=== PATIENT | female | born 1995 | race Caucasian/White ===

== ENCOUNTER 2016-12-27 11:41 | Emergency (ER) | payer OTHER ==
--- NOTE | 2016-12-27 12:24 | ER Document Report ---
ED Medical Screen (RME) - General Stated Complaint: CHEST PAIN Notes: monday-pelvic pain monday-nausea and pelvic pain monday- pelvic pain, nausea and diarrhea today- all above with chest pain chest pain is along the pectoralis muscle of the left chest that hurts with movement and is reproducible to palpation. no friction rub, breath sound are equal bilaterally. LMP: 12/09/2015 s/a with one partner with occasional condom use, denies any abnormal d/c, vaginal bleeding Denies PO BC, tobacco use, recent travel or recent sugery Patient has been evaluated and I have completed a rapid medical examination. A complete history and physical examination along with evaluation of workup will be completed by the provider once a bed is assigned - Related Data Allergies/Adverse Reactions: No Known Allergies Allergy (Unverified 12/27/16 12:19) Physical Exam - Vital signs Vitals: Temp Pulse Resp BP Pulse Ox 98.2 F 86 16 119/67 97 12/27/16 12:12 12/27/16 12:12 12/27/16 12:12 12/27/16 12:12 12/27/16 12:12 Course - Vital Signs Vital signs: Temp Pulse Resp BP Pulse Ox 98.2 F 86 16 119/67 97 12/27/16 12:12 12/27/16 12:12 12/27/16 12:12 12/27/16 12:12 12/27/16 12:12
--- NOTE | 2016-12-27 13:29 | EKG REPORT ---
SEVERITY:- NORMAL ECG - SINUS RHYTHM : Confirmed by: Ayan Scruggs MD 27-Dec-2016 13:27:20
[2016-12-27 14:17] LABS: APPEARANCE,URINE SLIGHTLY-CLOUDY; BILIRUBIN,URINE NEGATIVE (NEGATIVE); GLUCOSE, URINE NEGATIVE (NEGATIVE); KETONES,URINE NEGATIVE (NEGATIVE); LEUKOCYTE ESTERASE,URINE LARGE (NEGATIVE); NITRITE,URINE NEGATIVE (NEGATIVE); PROTEIN,URINE NEGATIVE (NEGATIVE); UROBILINOGEN,URINE NEGATIVE mg/dL (<2.0)
--- NOTE | 2016-12-27 15:01 | ER Document Report ---
ED General - General Chief Complaint: Abdominal Pain Stated Complaint: CHEST PAIN TRAVEL OUTSIDE OF THE [place] IN LAST 30 DAYS: No - HPI Patient complains to provider of: abdominal pain chest wall pain Notes: Patient coming in for evaluation of chest wall pain and suprapubic abdominal pain started prior to arrival. Patient states chest wall pain reproducible started while she was at work denies any shortness of breath denies fevers chills nausea vomiting diarrhea denies any recent travel. Patient also complains of suprapubic pain. Patient states that she is sexually active in a monogamous relationship she does have a slight amount of vaginal discharge however is not concerned about gonorrhea chlamydia Trichomonas or any other sexually transmitted diseases. Patient states the vaginal discharge is normal for her. Patient at this time declines any formal testing or examination - Related Data Allergies/Adverse Reactions: No Known Allergies Allergy (Unverified 12/27/16 12:19) Past Medical History - Social History Smoking Status: Never Smoker Chew tobacco use (# tins/day): No Frequency of alcohol use: None Drug Abuse: None Family History: Reviewed & Not Pertinent Patient has suicidal ideation: No Patient has homicidal ideation: No Renal/ Medical History: Denies: Hx Peritoneal Dialysis - Immunizations Hx Diphtheria, Pertussis, Tetanus Vaccination: No Review of Systems - Review of Systems Constitutional: No symptoms reported EENT: No symptoms reported Cardiovascular: Chest pain - Chest wall Respiratory: No symptoms reported Gastrointestinal: Abdominal pain Genitourinary: No symptoms reported Female Genitourinary: No symptoms reported Musculoskeletal: No symptoms reported Skin: No symptoms reported Hematologic/Lymphatic: No symptoms reported Neurological/Psychological: No symptoms reported Physical Exam - Vital signs Vitals: Temp Pulse Resp BP Pulse Ox 98.2 F 86 16 119/67 97 12/27/16 12:12 12/27/16 12:12 12/27/16 12:12 12/27/16 12:12 12/27/16 12:12 Interpretation: Normal - General General appearance: Appears well, Alert - HEENT Head: Normocephalic, Atraumatic Eyes: Normal Pupils: PERRL - Respiratory Respiratory status: No respiratory distress Chest status: Tender - Tenderness to palpation reproduces patient's pain Breath sounds: Normal Chest palpation: Normal - Cardiovascular Rhythm: Regular Heart sounds: Normal auscultation Murmur: No - Abdominal Inspection: Normal Distension: No distension Bowel sounds: Normal Tenderness: Nontender Organomegaly: No organomegaly - Back Back: Normal, Nontender - Extremities General upper extremity: Normal inspection, Nontender, Normal color, Normal ROM , Normal temperature General lower extremity: Normal inspection, Nontender, Normal color, Normal ROM , Normal temperature, Normal weight bearing. No: Alethea's sign - Neurological Neuro grossly intact: Yes Cognition: Normal Orientation: AAOx4 [place] Coma Scale Eye Opening: Spontaneous Flory Coma Scale Verbal: Oriented [place] Coma Scale Motor: Obeys Commands [place] Coma Scale Total: 15 Speech: Normal Motor strength normal: LUE, RUE, LLE, RLE Sensory: Normal - Psychological Associated symptoms: Normal affect, Normal mood - Skin Skin Temperature: Warm Skin Moisture: Dry Skin Color: Normal Course - Re-evaluation Re-evalutation: 12/27/16 20:27 Patient declining pelvic examination. Urinalysis does not show any signs of infection we will sent for culture. EKG chest x-ray negative. Patient's signs and symptoms are consistent with chest wall pain will give the patient anti- inflammatory medications for her pain control encouraged follow-up with PCP - Vital Signs Vital signs: Temp Pulse Resp BP Pulse Ox 97.9 F 78 16 120/68 98 12/27/16 15:16 12/27/16 15:16 12/27/16 15:16 12/27/16 15:16 12/27/16 15:16 - Laboratory Laboratory results interpreted by me: 12/27/16 14:00 Ur Leukocyte Esterase LARGE H Discharge - Discharge Clinical Impression: Chest wall pain, Suprapubic abdominal pain Condition: Good Disposition: HOME, SELF-CARE Instructions: Abdominal Pain ([facility]), Chest Wall Pain ([facility]), Anti-Inflammatory Medication ([facility]) Additional Instructions: Please take medication as prescribed. Please drink plenty of water to stay hydrated. Follow-up with your primary care physician. Return to the ER symptoms worsen. You are not Prescriptions: Ibuprofen [Motrin 600 Mg Tablet] 600 mg PO TID #30 tablet Forms: Return to Work
[2016-12-27 15:20] VITALS: BP 120/68
== END 2016-12-27 15:16 | disposition home or self-care (01) ==
LOC: ER 11:41
DX: R07.89 Other chest pain (principal); R10.9 Unspecified abdominal pain
CPT/HCPCS: 71020; 81001; 81025; 93005; 93010; 99284